=== PATIENT | male | born 1990 ===

== ENCOUNTER 2017-04-26 22:33 | Emergency (ER) | payer SELFPAY ==
[2017-04-26 23:05] LABS: BASO % 0.4 % (0.0-2.0); EOS % 0.6 % (0.0-4.0); HEMATOCRIT 42.2 % (35.0-51.0); LYMPH # 1.5 K/uL (1.0-4.3); LYMPH % 27.5 % (20.0-40.0); MEAN CELL VOLUME 92.7 fL (80.0-94.0); MEAN CORPUSCULAR HEMOGLOBIN 32.9 pg (27.0-31.0); MEAN CORPUSCULAR HGB CONC 35.5 g/dL (33.0-37.0); MEAN PLATELET VOLUME 8.6 fL (7.2-11.7); MONO # 0.5 K/uL (0.0-0.8); MONO % 8.6 % (0.0-10.0); RED CELL DISTRIBUTION WIDTH 13.2 % (11.5-14.5); WHITE BLOOD COUNT 5.3 K/uL (4.8-10.8)
[2017-04-26 23:08] LABS: URINE BILIRUBIN NEGATIVE (NEGATIVE); URINE BLOOD NEGATIVE (NEGATIVE); URINE COLOR Colorless (YELLOW); URINE GLUCOSE (UA) NORMAL (Normal); URINE KETONE NEGATIVE (NEGATIVE); URINE LEUKOCYTE ESTERASE NEG Leu/uL (Negative); URINE PROTEIN NEGATIVE (NEGATIVE); URINE UROBILINOGEN NORMAL mg/dL (0.2-1.0)
[2017-04-26 23:19] LABS: ALB/GLOB RATIO 1.7 (1.0-2.1); ALCOHOL SERUM < 10 mg/dl (0-10); ALKALINE PHOSPHATASE 97 U/L (38-126); ALT/SGPT 62 U/L (21-72); AST/SGOT 66 U/L (17-59); BILIRUBIN,TOTAL 0.9 mg/dL (0.2-1.3); BLOOD UREA NITROGEN 7 mg/dL (9-20); CALCIUM 8.7 mg/dl (8.6-10.4); CARBON DIOXIDE 28 mmol/L (22-30); CHLORIDE 92 mmol/L (98-107); GFR AFRICAN-AMERICAN > 60; GLUCOSE,RANDOM 124 mg/dL (75-110); POTASSIUM 3.4 mmol/L (3.6-5.2); SODIUM 131 mmol/L (132-148); TOTAL PROTEIN 7.3 g/dL (6.3-8.3)
[2017-04-26] MEDS ORDERED: Lactated Ringer's 1,000 ML IV STA (23:23)
[2017-04-26] MEDS ORDERED: Morphine 4 MG/ML VIAL ONE (23:31)
[2017-04-26] MEDS ORDERED: Lactated Ringer's 1,000 ML ONE (23:32)
--- NOTE | 2017-04-26 23:42 | C.PDOC ---
History Of Present Illness 1/2 day RLQ abd pain + N/V, no BM/diarrhea Time Seen by Provider: 04/26/17 23:18 Chief Complaint (Nursing): Abdominal Pain History Per: Patient History/Exam Limitations: no limitations Onset/Duration Of Symptoms: Hrs Current Symptoms Are (Timing): Worse Severity: Moderate Pain Scale Rating Of: 6 Location Of Pain/Discomfort: RLQ Radiation Of Pain To:: None Quality Of Discomfort: Dull, Aching, Pressure Associated Symptoms: Vomiting. denies: Fever, Chills, Nausea Exacerbating Factors: Movement Alleviating Factors: Rest Last Bowel Movement: Today Recent travel outside of the [place]: No Additional History Per: Patient Past Medical History Reviewed: Historical Data, Nursing Documentation, Vital Signs Vital Signs: Last Vital Signs Temp 98.5 F 04/26/17 22:52 Pulse 95 H 04/26/17 22:52 Resp 20 04/26/17 22:52 BP 150/98 H 04/26/17 22:52 Pulse Ox 96 04/26/17 23:43 - Medical History PMH: No Chronic Diseases Surgical History: No Surg Hx Family History: States: No Known Family Hx - Social History Hx Alcohol Use: No Hx Substance Use: No - Immunization History Hx Tetanus Toxoid Vaccination: No Hx Influenza Vaccination: No Hx Pneumococcal Vaccination: No Review Of Systems Except As Marked, All Systems Reviewed And Found Negative. Physical Exam - Physical Exam Appears: Other (+mild/mod distress abd pain ) Skin: Normal Color Head: Atraumatic, Normacephalic Eye(s): bilateral: Normal Inspection Nose: Normal Gingiva: Normal Appearing Lymphatic: Deferred Chest: Symmetrical Cardiovascular: Rhythm Regular Gastrointestinal/Abdominal: Tenderness (+ McBurney), Other (+ referred pain to RLQ on deep palp) Neurological/Psych: Oriented x3, Normal Speech, Normal Cognition, Normal Cranial Nerves ED Course And Treatment - Laboratory Results Result Diagrams: 04/26/17 23:03 04/26/17 23:03 Lab Interpretation: Normal (ua neg.) O2 Sat by Pulse Oximetry: 96 - CT Scan/US CT ABd/Pelvis with IV Other Rad Studies (CT/US): Radiology Report Reviewed (neg for AP. ++ stool RLQ) Reevaluation Time: 00:39 Reassessment Condition: Improved Medical Decision Making Medical Decision Making: constipation with ++ stool RLQ, no AP, otherwise normal CT abd Disposition Doctor Will See Patient In The: Office Counseled Patient/Family Regarding: Studies Performed - Disposition Disposition: HOME/ ROUTINE Disposition Time: 00:39 Condition: GOOD Forms: [facility] ([place]) - Clinical Impression Clinical Impression: Abdominal pain
[2017-04-26] MEDS ORDERED: Iodixanol 320 MG/ML 100 ML BOTTLE IV ONE (23:49)
--- NOTE | 2017-04-27 00:35 | CT ---
EXAM: CT Abdomen and Pelvis With Intravenous Contrast CLINICAL HISTORY: 27 years old, male; Pain; Abdominal pain; Additional info: Abd pain, rlq, ? ap TECHNIQUE: Axial computed tomography images of the abdomen and pelvis with intravenous contrast. All CT scans at this facility use one or more dose reduction techniques, viz.: automated exposure control; ma/kV adjustment per patient size (including targeted exams where dose is matched to indication; i.e. head); or iterative reconstruction technique. Coronal and sagittal reformatted images were created and reviewed. CONTRAST: 100 mL of [id number] administered intravenously. COMPARISON: No relevant prior studies available. FINDINGS: Lower thorax: No acute findings. ABDOMEN: Liver: No acute abnormality as visualized. Gallbladder and bile ducts: No acute abnormality as visualized. Pancreas: No acute abnormality as visualized. Spleen: No splenomegaly. Adrenals: No acute abnormality as visualized. Kidneys and ureters: Symmetric enhancement. No hydronephrosis. Sub-centimeter hypoattenuating focus in the left kidney, too small to characterize, statistically represents a cyst. Stomach and bowel: Limited evaluation without enteric contrast. Areas of apparent bowel wall prominence may be due to incomplete distention. No obstruction. Appendix: Normal caliber appendix. PELVIS: Bladder: No acute abnormality as visualized. Reproductive: No acute abnormality as visualized. ABDOMEN and PELVIS: Intraperitoneal space: No free air. No significant fluid collection. Bones: No acute fracture. Mild degenerative changes in the lumbosacral spine. Vasculature: No acute abnormality as visualized. Lymph nodes: No acute abnormality as visualized. IMPRESSION: No definitive acute CT finding to correspond to reported history. Details as above.
[2017-04-27 00:47] VITALS: BP 120/80; PULSE 80; RESP 14; TEMP 98; O2SAT 99
== END 2017-04-27 00:47 | disposition home or self-care (01) ==
LOC: C.ER 22:33
DX: R10.31 Right lower quadrant pain (principal)
CPT/HCPCS: 74177; 80053; 81001; 83690; 85025; 96374; 96375; 99284; G0480; J1885; J2270; J7120; Q9967